=== PATIENT | female | born 1950 | race Caucasian/White ===

== ENCOUNTER 2018-02-21 19:17 | Inpatient (IN) | payer MEDICARE ==
[~2018-02-21] VITALS: Ht 152.4 cm; Wt 89.8 kg
[~2018-02-21 19:17] MED LIST: CALC-816 MT; CALC-816 PO; GLIM4TAB2 MT; INSLIS SUBCUT; INSU100I28 SQ; LEVO175T7 MT; LEVO500T89 MT; NITR0.4T SL; PROT40 MT; TORS20TA4 MT; VIT1TABL86 MT
[2018-02-21] MEDS ORDERED: SODIUM CHLORIDE 0.9% 1,000 ML IV ONE (20:43)
[2018-02-21] MEDS ORDERED: ONDANSETRON HCL 4MG/2ML INJ IV STA (20:43)
[2018-02-21 20:55] LABS: HEMATOCRIT. 41.3 % (36.0-48.0); HEMOGLOBIN. 13.5 g/dL (12.0-16.0); MEAN CORPUSCULAR HEMOGLOBIN 28.5 pg (28.0-32.0); MEAN CORPUSCULAR VOLUME 87.3 fL (81.0-99.0); MEAN PLATELET VOLUME 10.3 fl (7.4-10.4); PLATELET 99 x1000/uL (130-400); RED BLOOD CELL COUNT 4.73 mill/uL (4.2-5.4); RED CELL DISTRIBUTION WIDTH 17.2 % (11.6-14.6)
[2018-02-21 20:57] LABS: CHLORIDE 98 mEq/L (98-107)
[2018-02-21 21:19] LABS: PLATELET ESTIMATE DECREASED
[2018-02-21] MEDS ORDERED: PIPERACILLIN SODIUM/TAZOBACTAM 4.5 G in DEXT 5% WATER 100 ML IV SCH (21:30)
[2018-02-21] MEDS ORDERED: FENTANYL CITRATE/PF 50MCG/ML 2ML VIAL IV ONE (23:30)
[2018-02-21] MEDS ORDERED: SODIUM CHLORIDE 0.9% 1,000 ML IV SCH (23:36)
[2018-02-22 04:00] VITALS: BP 109/69
[2018-02-22 05:28] VITALS: BP 109/69
[2018-02-22] MEDS ORDERED: MORPHINE SULFATE 10 MG/ML CPJ IV PRN (07:15)
[2018-02-22] MEDS ORDERED: HYDROMORPHONE HCL/PF 2MG/ML CPJ IV PRN (07:15)
[2018-02-22] MEDS: BLOOD SUGAR DIAGNOSTIC STRIP TEST SCH ×4 (07:20→21:44)
[2018-02-22] MEDS: INSULIN LISPRO 100 UNITS/ML SUBCUT SCH ×4 (07:50→21:00)
[2018-02-22 08:29] VITALS: BP 100/63
[2018-02-22] MEDS: DEXT 5%/0.45% NACL 1000ML 1,000 ML IV SCH ×2 (09:22→21:45)
[2018-02-22] MEDS: CALCIUM CARBONATE/VITAMIN D3 500MG TABLET PO SCH ×2 (11:08→18:32)
[2018-02-22] MEDS: LEVOTHYROXINE SODIUM 175MCG TABLET PO SCH (11:09)
[2018-02-22] MEDS: LEVOFLOXACIN 500MG PREMIX 100 ML IV SCH (11:14)
[2018-02-22] MEDS: METRONIDAZOLE 500 MG PREMIX 100 ML IV SCH ×2 (12:16→21:37)
[2018-02-22 12:49] LABS: HEMATOCRIT. 41.8 % (36.0-48.0); HEMOGLOBIN. 13.8 g/dL (12.0-16.0); MEAN CORPUSCULAR HEMOGLOBIN 29.1 pg (28.0-32.0); MEAN CORPUSCULAR VOLUME 87.8 fL (81.0-99.0); RED BLOOD CELL COUNT 4.76 mill/uL (4.2-5.4); RED CELL DISTRIBUTION WIDTH 17.3 % (11.6-14.6)
[2018-02-22 13:20] VITALS: BP 132/100
[2018-02-22 14:09] LABS: MEAN PLATELET VOLUME 10.4 fl (7.4-10.4); PLATELET 108 x1000/uL (130-400); PLATELET ESTIMATE DECREASED
[2018-02-22 16:17] VITALS: BP 79/52
[2018-02-22 20:00] VITALS: BP 97/61
[2018-02-22] MEDS: ENOXAPARIN 40MG/0.4ML SYR SUBCUT SCH (21:44)
[2018-02-23] VITALS: BP 95/65
[2018-02-23] MEDS: METRONIDAZOLE 500 MG PREMIX 100 ML IV SCH ×3 (03:29→21:29)
[2018-02-23 04:00] VITALS: BP 101/66
[2018-02-23 06:02] LABS: BASOPHILS % 0.3 % (0.0-2.0); HEMATOCRIT. 41.2 % (36.0-48.0); HEMOGLOBIN. 13.7 g/dL (12.0-16.0); LYMPHOCYTES % 9.4 % (20.0-50.0); MEAN CORPUSCULAR HEMOGLOBIN 29.1 pg (28.0-32.0); MEAN CORPUSCULAR VOLUME 87.5 fL (81.0-99.0); MONOCYTES % 5.6 % (2.0-8.0); NEUTROPHILS % 84.7 % (40.0-76.0); RED BLOOD CELL COUNT 4.72 mill/uL (4.2-5.4); RED CELL DISTRIBUTION WIDTH 17.9 % (11.6-14.6)
[2018-02-23] MEDS: LEVOTHYROXINE SODIUM 175MCG TABLET PO SCH (06:29)
[2018-02-23] MEDS: INSULIN LISPRO 100 UNITS/ML SUBCUT SCH ×4 (06:34→23:13)
[2018-02-23] MEDS: BLOOD SUGAR DIAGNOSTIC STRIP TEST SCH ×4 (06:34→22:36)
[2018-02-23 07:11] LABS: HEPATITIS B SURFACE ANTIGEN NEGATIVE
[2018-02-23 07:39] LABS: HEPATITIS A AB IGM NEGATIVE (NEGATIVE)
[2018-02-23 08:00] VITALS: BP 94/65
[2018-02-23] MEDS: CALCIUM CARBONATE/VITAMIN D3 500MG TABLET PO SCH ×2 (08:27→16:55)
[2018-02-23 10:21] LABS: MEAN PLATELET VOLUME 11.9 fl (7.4-10.4); PLATELET 79 x1000/uL (130-400)
[2018-02-23] MEDS: LEVOFLOXACIN 500MG PREMIX 100 ML IV SCH (10:51)
[2018-02-23 12:00] VITALS: BP 92/53
[2018-02-23] MEDS: DEXT 5%/0.45% NACL 1000ML 1,000 ML IV SCH (12:06)
[2018-02-23 16:00] VITALS: BP 121/67
[2018-02-23 20:38] VITALS: BP 102/65
[2018-02-23] MEDS: ENOXAPARIN 40MG/0.4ML SYR SUBCUT SCH (23:00)
[2018-02-24 00:31] VITALS: BP 107/69
[2018-02-24 04:46] VITALS: BP 111/59
[2018-02-24] MEDS: METRONIDAZOLE 500 MG PREMIX 100 ML IV SCH (06:22)
[2018-02-24] MEDS: LEVOTHYROXINE SODIUM 175MCG TABLET PO SCH (06:39)
[2018-02-24] MEDS: BLOOD SUGAR DIAGNOSTIC STRIP TEST SCH (06:51)
[2018-02-24 08:00] VITALS: BP_SYST 110; BP_SYST 113; BP_DIAS 65; BP_DIAS 75
[2018-02-24] MEDS: CALCIUM CARBONATE/VITAMIN D3 500MG TABLET PO SCH (09:09)
[2018-02-24] MEDS: INSULIN LISPRO 100 UNITS/ML SUBCUT SCH (09:10)
[2018-02-24 10:36] VITALS: BP 110/65
[2018-02-24] MEDS ORDERED: LEVOFLOXACIN 250MG PREMIX 50 ML IV SCH (11:00)
== END 2018-02-24 11:45 | disposition home or self-care (01) | DRG 444 ==
LOC: ER 20:00 → 6EST 22:36 → EDBEDREQ 23:39 → EDBEDREQTM 23:39 → ENRESERV 02-22 03:50
PROVIDERS: ADMIT Internal Medicine Nephrology; ATTEND Internal Medicine Nephrology
DX: K80.62 Calculus of gallbladder and bile duct with acute cholecystitis without obstruction (principal); K85.10 Biliary acute pancreatitis without necrosis or infection; I42.9 Cardiomyopathy, unspecified; E87.1 Hypo-osmolality and hyponatremia; N17.9 Acute kidney failure, unspecified; E66.01 Morbid (severe) obesity due to excess calories; E03.9 Hypothyroidism, unspecified; E11.9 Type 2 diabetes mellitus without complications; E83.42 Hypomagnesemia; G47.33 Obstructive sleep apnea (adult) (pediatric); I11.0 Hypertensive heart disease with heart failure; M19.90 Unspecified osteoarthritis, unspecified site; I50.9 Heart failure, unspecified; K75.9 Inflammatory liver disease, unspecified; K76.0 Fatty (change of) liver, not elsewhere classified; Z95.810 Presence of automatic (implantable) cardiac defibrillator; Z68.38 Body mass index [BMI] 38.0-38.9, adult; Z79.84 Long term (current) use of oral hypoglycemic drugs
CPT/HCPCS: 36415; 76705; 78227; 80048; 80076; 82150; 82248; 82962; 83735; 84484; 86705; 86709; 86803; 87340; 93005; 93970; 96365; 96375; 99285; A9537; J1170; J1650; J1815; J1956; J2405; J2543; J3010; J3490; J7030; J7060